=== PATIENT | female | born 1965 | race Caucasian/White ===

== ENCOUNTER 2017-08-15 04:54 | Emergency (ER) | payer OTHER ==
[~2017-08-15] VITALS: Ht 162.6 cm; Wt 101.5 kg
[~2017-08-15 04:54] MED LIST: HYDR-902 PO; IBUP800T25 PO; METF500T3 PO; METR500T PO; ONDA4TAB14 PO
[2017-08-15 05:02] VITALS: Ht 162.6 cm; Wt 101.5 kg
--- NOTE | 2017-08-15 07:29 | ERD ---
ER Documentation HPI This is a 52-year-old female presenting to emergency department for pelvic pain 2 days. Patient states she has had suprapubic pressure since last night. Denies dysuria or hematuria. Patient admits to urinary frequency. Patient states suprapubic pressure radiates to periumbilical area of abdomen. Denies any nausea, vomiting, diarrhea or constipation. Patient's last bowel movement was last night. Patient has history of hysterectomy and has not had a menstrual period for many years. Patient denies fevers or chills. No back or flank pain. No recent travel. ROS All systems reviewed and are negative except as per history of present illness. Medications Home Meds Active Scripts Ibuprofen* (Motrin*) 600 Mg Tab, 600 MG PO Q6, #30 TAB Prov:CINDY MAHER NP 08/15/17 Ciprofloxacin Hcl* (Ciprofloxacin Hcl*) 500 Mg Tablet, 500 MG PO BID for 7 Days , TAB Prov:CINDY MAHER NP 08/15/17 Ondansetron (Ondansetron Odt) 4 Mg Tab.rapdis, 4 MG PO Q6H Y for NAUSEA AND/OR VOMITING, #30 TAB Prov:CHRIS CARMONA MD 09/21/16 Hydrocodone/Acetaminophen (Mccleary 10-325 Tablet) 1 Each Tablet, 1 TAB PO Q6H Y for PAIN, #10 TAB Prov:CHRIS CARMONA MD 09/21/16 Ibuprofen* (Motrin*) 800 Mg Tab, 800 MG PO Q6H Y for PAIN AND OR ELEVATED TEMP, #30 TAB Prov:CHRIS CARMONA MD 09/21/16 Metronidazole* (Flagyl*) 500 Mg Tablet, 500 MG PO BID for 14 Days, TAB Prov:DONY BORREGO PA-C 04/27/16 Reported Medications Metformin* (Glucophage* XR) 500 Mg Tab.sr.24h, 500 MG PO AM 03/08/12 Allergies Allergies: Coded Allergies: No Known Drug Allergy (Verified Allergy, Unknown, 08/10/16) PMhx/Soc History of Surgery: Yes (GALLBLADDER REMOVAL, FALLOPIAN TUBE "BURNING") Anesthesia Reaction: No Hx Neurological Disorder: No Hx Respiratory Disorders: No Hx Cardiac Disorders: Yes (HTN) Hx Psychiatric Problems: No Hx Miscellaneous Medical Probl: Yes (DM) Hx Alcohol Use: No Hx Substance Use: No Hx Tobacco Use: No Smoking Status: Never smoker Physical Exam Vitals Vital Signs Date Time Temp Pulse Resp B/P Pulse Ox O2 Delivery O2 Flow Rate FiO2 08/15/17 08:45 68 18 128/88 98 Room Air 08/15/17 05:02 98.4 73 18 143/85 98 Physical Exam Const: No acute distress, alert Head: Atraumatic Eyes: Normal Conjunctiva ENT: Normal External Ears, Nose and Mouth. Neck: Full range of motion..~ No meningismus. Resp: Clear to auscultation bilaterally Cardio: Regular rate and rhythm, no murmurs Abd: Soft, non distended. Normal bowel sounds, suprapubic tenderness, negative Olvera sign. No McBurney point tenderness. No rebound tenderness. Skin: No petechiae or rashes Back: No midline or flank tenderness Ext: No cyanosis, or edema Neur: Awake and alert Psych: Normal Mood and Affect Result Diagram: 08/15/1771808/15/17718 Results 24 hrs Laboratory Tests Test 08/15/17 07:19 White Blood Count 6.510^3/ul Red Blood Count 4.6810^6/ul Hemoglobin 14.5g/dl Hematocrit 44.3% Mean Corpuscular Volume 94.7fl Mean Corpuscular Hemoglobin 31.0pg Mean Corpuscular Hemoglobin Concent 32.7g/dl Red Cell Distribution Width 12.1% Platelet Count 59551^3/UL Mean Platelet Volume 9.5fl Neutrophils % 56.0% Lymphocytes % 35.4% Monocytes % 6.9% Eosinophils % 0.3% Basophils % 1.1% Nucleated Red Blood Cells % 0.0/100WBC Neutrophils # 3.610^3/ul Lymphocytes # 2.310^3/ul Monocytes # 0.510^3/ul Eosinophils # 0.010^3/ul Basophils # 0.110^3/ul Nucleated Red Blood Cells # 0.010^3/ul Urine Color YELLOW Urine Clarity SLIGHTLY CLOUDY Urine pH 6.0 Urine Specific Blanch 1.018 Urine Ketones NEGATIVEmg/dL Urine Nitrite POSITIVEmg/dL Urine Bilirubin NEGATIVEmg/dL Urine Urobilinogen NEGATIVEmg/dL Urine Leukocyte Esterase TRACELeu/ul Urine Microscopic RBC 1/HPF Urine Microscopic WBC 10/HPF Urine Squamous Epithelial Cells FEW/HPF Urine Bacteria FEW/HPF Urine Mucus FEW/HPF Urine Hemoglobin 1+mg/dL Urine Glucose NEGATIVEmg/dL Urine Total Protein NEGATIVEmg/dl Sodium Level 146mmol/L Potassium Level 4.7mmol/L Chloride Level 106mmol/L Carbon Dioxide Level 34mmol/L Anion Gap 11 Blood Urea Nitrogen 13mg/dl Creatinine 0.80mg/dl Glucose Level 128mg/dl Calcium Level 9.6mg/dl Procedures/MDM MDM: This is a 52-year-old female presenting to emergency department for suprapubic tenderness 2 days. Vital signs are stable and patient is afebrile. Patient states pelvic pain radiates to periumbilical region of abdomen. There is no nausea, vomiting, diarrhea or constipation. UA, CBC and BMP ordered. CBC shows no significant anemia or infection. BMP shows no significant electrolyte imbalance. UA shows positive nitrate, trace leukocyte esterase, 10 WBCs and few bacteria. Patient walking around the ED without difficulty. Patient able to jump up and down without discomfort. No tenderness to palpation. Patient remains afebrile and vital signs are stable. Patient is alert and not ill-appearing. Patient is nontoxic-appearing. Differential diagnosis includes but not limited to acute appendicitis, diverticulitis, diverticulosis, bowel obstruction, constipation, infectious colitis, irritable bowel syndrome, inflammatory bowel disease, viral gastroenteritis, abdominal aortic aneurysm, food intolerance, celiac disease, UTI, pyelonephritis, nephrolithiasis, acute urinary retention or colorectal cancer. I doubt any emergent conditions such as appendicitis, diverticulitis, bowel obstruction, abdominal aortic aneurysm at this time due to normal vital signs and normal lab results. Patient is appropriate for outpatient management. Patient will be given prescription for Cipro and ibuprofen. Instructed patient to follow-up with primary care provider in the next 2-3 days for reassessment and additional management. Return to ED for any high fever, chest pain, difficulty breathing, shortness breath, wheezing, vomiting, diarrhea, abdominal pain or any new or worsening symptoms. Patient verbalizes understanding. All questions answered at discharge. Disclaimer: Inadvertent spelling and grammatical errors are likely due to EHR/ dictation software use and do not reflect on the overall quality of patient care. Also, please note that the electronic time recorded on this note does not necessarily reflect the actual time of the patient encounter. Departure Diagnosis: Primary Impression: Dysuria Condition: Stable CINDY MAHER NP Aug 15, 2017 07:29
[2017-08-15 07:42] LABS: BASOPHILS % 1.1 % (0.0-2.0); EOSINOPHILS % 0.3 % (0.0-7.0); HEMATOCRIT 44.3 % (37.0-47.0); HEMOGLOBIN 14.5 g/dl (12.0-16.0); LYMPHOCYTES # 2.3 10^3/ul (0.8-2.9); LYMPHOCYTES % 35.4 % (15.0-51.0); MEAN CORPUSCULAR HGB CONC 32.7 g/dl (32.0-37.0); MEAN CORPUSCULAR VOLUME 94.7 fl (82.0-101.0); MEAN PLATELET VOLUME 9.5 fl (7.4-10.4); MONOCYTE # 0.5 10^3/ul (0.3-0.9); MONOCYTES % 6.9 % (0.0-11.0); NEUTROPHIL # 3.6 10^3/ul (1.6-7.5); PLATELET COUNT 266 10^3/UL (140-415); RED BLOOD COUNT 4.68 10^6/ul (4.20-5.40); RED CELL DISTRIBUTION WIDTH 12.1 % (11.5-14.5); WHITE BLOOD COUNT 6.5 10^3/ul (4.8-10.8)
[2017-08-15 07:43] LABS: BASOPHIL # 0.1 10^3/ul (0.0-0.1)
[2017-08-15 07:54] LABS: ADD UMIC YES; UR ASCORBIC ACID NEGATIVE (NEGATIVE); UR BACTERIA FEW /HPF (NONE SEEN); UR BILIRUBIN (Dip) NEGATIVE (NEGATIVE); UR BLOOD (Dip) 1+ mg/dL (NEGATIVE); UR CLARITY SLIGHTLY CLOUDY (CLEAR); UR COLOR YELLOW (YELLOW); UR GLUCOSE (Dip) NEGATIVE (NEGATIVE); UR KETONES (Dip) NEGATIVE (NEGATIVE); UR LEUKOCYTE ESTERASE (Dip) TRACE Leu/ul (NEGATIVE); UR MUCUS FEW /HPF (NONE SEEN); UR NITRITE (Dip) POSITIVE (NEGATIVE); UR RBC 1 /HPF (0-5); UR SPECIFIC GRAVITY (Dip) 1.018 (1.003-1.030); UR SQUAMOUS EPITHELIAL CELL FEW /HPF (FEW); UR TOTAL PROTEIN (Dip) NEGATIVE (NEGATIVE); UR UROBILINOGEN (Dip) NEGATIVE (NEGATIVE)
[2017-08-15 08:07] LABS: CALCIUM 9.6 mg/dl (8.4-10.2); CREATININE 0.8 mg/dl (0.44-1.00); POTASSIUM 4.7 mmol/L (3.5-5.1)
[2017-08-15] MEDS ORDERED: IBUP-1542 PO (08:28)
[2017-08-15] MEDS ORDERED: CIPR500T4 PO (08:28)
[2017-08-15 08:45] VITALS: BP 128/88; PULSE 68; RESP 18
== END 2017-08-15 08:46 | disposition home or self-care (01) ==
LOC: FTE 04:54
DX: R30.0 Dysuria (principal); I10 Essential (primary) hypertension; E11.9 Type 2 diabetes mellitus without complications; Z79.84 Long term (current) use of oral hypoglycemic drugs
CPT/HCPCS: 36415; 80048; 81001; 85025; 99283

== ENCOUNTER 2018-01-06 08:36 | Emergency (ER) | END 2018-01-06 11:25 | disposition left against medical advice (07) ==

== ENCOUNTER 2018-01-24 06:04 | Emergency (ER) | END 2018-01-24 10:57 | disposition home or self-care (01) ==

== ENCOUNTER 2018-04-07 13:12 | Emergency (ER) | END 2018-04-07 15:17 | disposition home or self-care (01) ==

== ENCOUNTER 2018-04-08 04:57 | Emergency (ER) | END 2018-04-08 07:44 | disposition home or self-care (01) ==

== ENCOUNTER 2018-06-07 17:45 | Emergency (ER) | END 2018-06-07 18:53 | disposition home or self-care (01) ==